=== PATIENT | male | born 1990 | race Caucasian/White ===

== ENCOUNTER 2018-04-06 12:03 | Inpatient (IN) | payer OTHER, SELFPAY ==
[~2018-04-06 12:03] MED LIST: ISOVUE-370 76%-LOCM 1 ML ONE
[2018-04-06] MEDS ORDERED: Adacel (T-DAP) 0.5 ML VIAL ONE (12:16)
[2018-04-06] MEDS ORDERED: HYDROcodone/Acetaminophen 5/325 mg Tablet ONE (12:16)
[2018-04-06 12:21] LABS: #Basophils 0.1 thou/uL (0.0-0.2); #Eosinphils 0.3 thou/uL (0.0-0.7); #Lymphocytes 1.5 thou/uL (1.20-3.40); #Neutrophils 12.3 thou/uL (1.40-6.50); %Basophils 0.6 % (0.0-1.0); %Eosinophils 1.9 % (0.0-10.0); %Lymphocytes 10.1 % (21.0-51.0); %Monocytes 6.7 % (0.0-10.0); %Neutrophils 80.7 % (42.0-75.0); Hemoglobin 17.7 g/dL (14.0-18.0); Mean Corpuscular HGB CONC 33.6 g/dL (32.0-36.0); Mean Corpuscular Hemoglobin 31.7 pg (27.0-31.0); Mean Corpuscular Volume 94.3 fl (80.0-94.0); Mean Platelet Volume 9.4 fL (7.4-10.4); Platelet Count 197 thou/uL (130-400); RBC Distribution Width 12.2 % (11.5-14.5); Red Blood Cell (RBC) Count 5.59 mill/uL (4.70-6.10); White Blood Cell (WBC) Count 15.3 thou/uL (4.8-10.8)
[2018-04-06 12:30] LABS: INR-International Normal Ratio 1.1; PTT 27.7 SEC (22.9-36.1)
[2018-04-06 12:45] LABS: ALT (SGPT) 24 U/L (8-55); AST (SGOT) 39 U/L (5-34); Albumin 4.9 g/dL (3.5-5.0); Alcohol Less than 10 mg/dL (Less than 10); Alkaline Phosphatase 61 U/L (40-150); Anion Gap 14 mmol/L (10-20); BUN (Urea Nitrogen) 13 mg/dL (8.9-20.6); Bilirubin, Total 0.5 mg/dL (0.2-1.2); Calc. Creatinine Clearance 0 mL/min (70-130); Calcium 9.4 mg/dL (7.8-10.44); Carbon Dioxide 26 mmol/L (22-29); Chloride 103 mmol/L (98-107); Estimated GFR-MDRD Greater than 90; Globulin 2.8 g/dL (2.4-3.5); Glucose 104 mg/dL (70-105); Potassium 5.1 mmol/L (3.5-5.1); Protein, Total 7.7 g/dL (6.0-8.3); Sodium 138 mmol/L (136-145)
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
[2018-04-06] MEDS ORDERED: Dextrose 5% in Water 1,000 ML IV PRN (13:42)
[2018-04-06] MEDS ORDERED: Ondansetron ODT 4 MG TAB PO PRN (13:42)
[2018-04-06] MEDS ORDERED: Ondansetron HCl/PF 4 MG/2 ML Vial IVP PRN (13:42)
[2018-04-06] MEDS ORDERED: Dextrose 50% Abboject 50 ML SYRINGE SLOW IVP PRN (13:42)
[2018-04-06] MEDS ORDERED: Sodium Chloride 0.9% 1,000 ML IV SCH (13:45)
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
[2018-04-06] MEDS ORDERED: Acetaminophen 500 MG TAB PO SCH (14:00)
[2018-04-06] MEDS ORDERED: traMADol HCl 50 MG TAB PO PRN ×2 (14:08)
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
[2018-04-06 15:14] VITALS: BP 120/74; TEMP 97.7; BMI 18.8
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
== END 2018-04-06 16:45 | disposition left against medical advice (07) | DRG 815 ==
LOC: ERS 12:03 → SURG A 14:49
PROVIDERS: ADMIT Specialist; ATTEND Specialist
DX: S36.039A Unspecified laceration of spleen, initial encounter (principal); Q60.0 Renal agenesis, unilateral; V89.2XXA Person injured in unspecified motor-vehicle accident, traffic, initial encounter; F17.210 Nicotine dependence, cigarettes, uncomplicated; F12.90 Cannabis use, unspecified, uncomplicated
CPT/HCPCS: 70450; 71260; 72125; 74177; 80053; 80307; 83690; 85025; 85610; 85730; 90715; G0390

== ENCOUNTER 2019-09-05 07:30 | Emergency (ER) | payer SELFPAY ==
[2019-09-05 08:01] LABS: #Basophils 0.1 thou/uL (0.0-0.2); #Eosinphils 0.4 thou/uL (0.0-0.7); #Monocytes 0.9 thou/uL (0.11-0.59); #Neutrophils 6.9 thou/uL (1.40-6.50); %Basophils 0.7 % (0.0-1.0); %Eosinophils 4.1 % (0.0-10.0); %Lymphocytes 19.3 % (21.0-51.0); %Monocytes 8.6 % (0.0-10.0); %Neutrophils 67.3 % (42.0-75.0); Hemoglobin 15.6 g/dL (14.0-18.0); Mean Corpuscular HGB CONC 34.2 g/dL (32.0-36.0); Mean Corpuscular Hemoglobin 31.6 pg (27.0-31.0); Mean Corpuscular Volume 92.4 fL (78.0-98.0); Mean Platelet Volume 8.7 fL (7.4-10.4); Platelet Count 279 thou/uL (130-400); RBC Distribution Width 12.4 % (11.5-14.5); Red Blood Cell (RBC) Count 4.94 mill/uL (4.70-6.10); White Blood Cell (WBC) Count 10.2 thou/uL (4.8-10.8)
[2019-09-05 08:23] LABS: ALT (SGPT) 17 U/L (8-55); AST (SGOT) 18 U/L (5-34); Albumin 4.6 g/dL (3.5-5.0); Alkaline Phosphatase 72 U/L (40-110); Anion Gap 11 mmol/L (10-20); BUN (Urea Nitrogen) 10 mg/dL (8.9-20.6); Bilirubin, Total 0.3 mg/dL (0.2-1.2); Calc. Creatinine Clearance 0 mL/min (70-130); Calcium 9.1 mg/dL (7.8-10.44); Carbon Dioxide 31 mmol/L (22-29); Chloride 103 mmol/L (98-107); Estimated GFR-MDRD Greater than 90; Glucose 77 mg/dL (70-105); Potassium 3.4 mmol/L (3.5-5.1); Protein, Total 7.6 g/dL (6.0-8.3); Sodium 142 mmol/L (136-145)
--- NOTE | 2019-09-05 08:59 | ULT ---
SCROTAL ULTRASOUND INDICATION: Right testicular swelling and pain TECHNIQUE: Grayscale, color Doppler spectral Doppler images were obtained of the scrotum. COMPARISON: None. FINDINGS: Right Testicle: Size: 3.7 x 3.7 x 4.5 cm. Flow: There is normal vascular flow to the right testicle Hydrocele: There is a small right-sided hydrocele. Epididymis: The right epididymis is enlarged and heterogeneous in appearance. No definite increased vascular flow is demonstrated with the right epididymis. Left Testicle: Size: 3.3 x 2.8 x 4.7 cm.. Flow: There is normal vascular flow to left testicle. Hydrocele: No left sided hydrocele seen. Epididymis: The left epididymis appears within normal limits. Additional findings: None. Impression: 1. Enlarged heterogeneous appearance to the right epididymis without increased vascular flow may refl ect sequela from a chronic epididymitis. A component of acute epididymitis is not entirely excluded based on the provided images. There is a small right hydrocele. Recommend correlation with the clinic al examination. Follow-up scrotal ultrasound is recommended.
[2019-09-05] MEDS ORDERED: Lidocaine 1% PF 5 ML VIAL ONE (09:43)
[2019-09-05] MEDS ORDERED: cefTRIAXone\\ROCEPHIN 250 MG VIAL ONE (09:43)
[2019-09-05 09:46] LABS: Bacteria/HPF None Seen HPF (None Seen); Bilirubin Negative (Negative); Blood, Urine Negative (Negative); Clarity Clear (Clear); Glucose, Urine (Dipstick) Normal (Negative); Leukocyte 75 Leu/uL (Negative); Nitrite Negative (Negative); Protein, Urine (Dipstick) 10 mg/dL (Neg-Trace); RBC/HPF 0-3 HPF (0-3); Squamous Epithelial None Seen HPF (0-3); Urobilinogen 3 mg/dL (Less than 2); WBC/HPF 21-50 HPF (0-3)
[2019-09-06 20:01] LABS: Chlam.trachomatis by PCR,Urine Not Detected (NotDetected)
== END 2019-09-05 10:05 | disposition home or self-care (01) ==
LOC: ERS 07:30
DX: N45.1 Epididymitis (principal); F17.210 Nicotine dependence, cigarettes, uncomplicated; K50.90 Crohn's disease, unspecified, without complications
CPT/HCPCS: 36415; 76870; 80053; 81003; 81015; 85025; 87086; 87491; 87591; 93976; J0696; J2001